=== PATIENT | female | born 1970 | race Caucasian/White ===

== ENCOUNTER 2025-03-29 15:15 | Emergency (ER) | payer OTHER ==
[~2025-03-29] VITALS: Ht 157.5 cm; Wt 84.0 kg
[2025-03-29 15:32] VITALS: TEMP 98.7
--- NOTE | 2025-03-29 15:32 | ED.PDOC ---
HPI (NEURO) HPI Comments 54 y/o F, BIBA, with PMHx of HTN presents to the ED for CC of weakness. Patient states, she has been experiencing symptoms of weakness with associated dizziness and nausea onset, 1000 today (03/29/25). Patient relays, to have checked her BP at home prior to EMS arrival and having a hypertensive reading. Patient denies chest pain, palpitations, abdominal pain, or headache. No other symptoms or modifying factors present at this time. Time Seen by MD: 15:32 Reviewed Notes: Nurses Notes, Metal Milling Machine Operator Notes, Medications, Allergies Information Source: Patient Mode of Arrival: EMS Severity: Moderate Dizziness/Weakness Severity: Does not affect activitie Headache Severity: None Timing: Hours Duration: Since onset Prehospital treatment: None Onset: At rest Circumstances: Spontaneous Symptoms: Vertigo Before: Normal During: Awake After: Normal Mentation History of: None Modifying factors: Nothing Associated Signs and Symptoms: None Past Medical History PAST MEDICAL HISTORY: Denies Surgical History: Cholecystectomy, , Tubal Ligation 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 BORE OPERATOR Hx Family History Family History: Unknown Social History Smoker: Non-Smoker Alcohol: Denies ETOH Use Drugs: Denies Drug Use Lives In: Home Constitutional: reports: weakness; denies: chills, diaphoresis, fatigue, fever, malaise, sweats, others EENTM: denies: blurred vision, double vision, ear bleeding, ear discharge, ear drainage, ear pain, ear ringing, eye pain, eye redness, hearing loss, mouth pain, mouth swelling, nasal discharge, nose bleeding, nose congestion, nose pain, photophobia, tearing, throat pain, throat swelling, voice changes, others Respiratory: denies: cough, hemoptysis, orthopnea, SOB at rest, shortness of breath, SOB with excertion, stridor, wheezing, others Cardiovascular: denies: chest pain, dizzy spells, diaphoresis, Dyspnea on exertion, edema, irregular heart beat, left arm pain, lightheadedness, palpita tions, PND, syncope, others Gastrointestinal: denies: abdomen distended, abdominal pain, blood streaked rehana wels, constipated, diarrhea, dysphagia, difficulty swallowing, hematemesis, melena, nausea, poor appetite, poor fluid intake, rectal bleeding, rectal pain, vomiting, others Genitourinary: denies: abnormal vagina bleeding, burning, dyspareunia, dysuria, flank pain, frequency, hematuria, incontinence, pain, , vagina discharge, urgency, others Neurological: denies: dizziness, fainting, headache, left sided numbness, left sided weakness, numbness, paresthesia, pre-existing deficit, right sided numbness, right sided weakness, seizure, speech problems, tingling, tremors, weakness, others Musculoskeletal: denies: back pain, gout, joint pain, joint swelling, muscle pain, muscle stiffness, neck pain, others Integumetry: denies: bruises, change in color, change in hair/nails, dryness, laceration, lesions, lumps, rash, wounds, others Allergic/Immunocompromised: denies: Difficulty Healing, Frequent Infections, Hives, Itching, others Hematologic/Lymphatic: denies: anemia, blood clots, easy bleeding, easy bruis ing, swollen glands, others Endocrine: denies: excessive hunger, excessive sweating, excessive thirst, exc essive urination, flushing, intolerance to cold, intolerance to heat, unexplained weight gain, unexplained weight loss, others Psychiatric: denies: anxiety, bipolar disorder, depression, hopeless, panic disorder, schizophrenia, sleepless, suicidal, others All Other Systems: Reviewed and Negative Physical Exam General Appearance: Moderate Distress HEENT: Normal ENT Inspection, Pharynx Normal, TMs Normal Neck: Full Range of Motion, Non-Tender, Normal, Normal Inspection Respiratory: Chest Non-Tender, Lungs Clear, No Accessory Muscle Use, No Respiratory Distress, Normal Breath Sounds Cardiovascular: No Edema, No JVD, No Murmur, No Gallop, Normal Peripheral Pulses, Regular Rate/Rhythm Breast Exam: Deferred Gastrointestinal: No Organomegaly, Non Tender, No Pulsatile Mass, Normal Bowel Sounds, Soft Genitalia: Deferred Pelvic: Deferred Rectal: Deferred Extremities: No calf tenderness, Normal capillary refill, Normal inspection, Normal range of motion, Non-tender, No pedal edema Musculoskeletal : Apperance: Normal Neurologic: Alert, manager ed II-XII nml as Tested, No Motor Deficits, Normal Affect, Normal Mood, No Sensory Deficits Cerebellar Function: Normal Reflexes: Normal Skin: Dry, Normal Color, Warm Peripheral Pulses: 3+ Radial (R), 3+ Radial (L) Lymphatic: No Adenopathy Was a procedure done? Was a procedure done?: No Differential Diagnosis (SZ) Seizure: Psychogenic Seizure, Closed Head Injury, CVA/TIA General Weakness: Dehydration, Electrolyte imbalance, Hypoglycemia X-Ray, Labs, Meds, VS Vital Signs Date Time Temp Pulse Resp B/P (MAP) Pulse Ox O2 Delivery O2 Flow Rate FiO2 03/29/25 15:32 98.7 103 16 139/86 (103) 97 98.7 03/29/25 15:21 102 Lab Test 03/29/25 16:41 03/29/25 15:42 Range/Units Urine Color Colorless Yellow Urine Clarity Clear Clear Urine pH 6.5 5.0-9.0 Urine Specific Points 1.005 1.001-1.035 Urine Protein Negative Negative Urine Ketones Negative Negative Urine Blood Negative Negative /uL Urine Nitrite Negative Negative Urine Bilirubin Negative Negative Urine Urobilinogen Normal Negative mg/dL Urine Leukocyte Esterase Negative Negative /uL Urine RBC None seen 0 - 4 /hpf Urine Microscopic WBC < 1 0-5 /HPF Urine Squamous Epithelial Cells None seen <5 /hpf Urine Bacteria None seen None Seen /hpf Urine Glucose Normal Normal mg/dL White Blood Count 5.9 4.4-10.8 10^3/uL Red Blood Count 4.30 4.0-5.20 10^6/uL Hemoglobin 13.9 12.2-16.2 g/dL Hematocrit 40.3 36.0-46.0 % Mean Corpuscular Volume 93.7 80.0-100.0 fL Mean Corpuscular Hemoglobin 32.4 H 28.0-32.0 pg Mean Corpuscular Hemoglobin Concent 34.6 32.0-36.0 g/dL Red Cell Distribution Width 13.4 11.8-14.3 % Platelet Count 253 140-450 10^3/uL Mean Platelet Volume 9.6 6.9-10.8 fL Neutrophils (%) (Auto) 70.3 37.0-80.0 % Lymphocytes (%) (Auto) 21.8 10.0-50.0 % Monocytes (%) (Auto) 6.0 0.0-12.0 % Eosinophils (%) (Auto) 1.2 0.0-7.0 % Basophils (%) (Auto) 0.7 0.0-2.0 % Neutrophils # (Auto) 4.1 1.6-8.6 10 ^3/uL Lymphocytes # (Auto) 1.3 0.4-5.4 10 ^3/uL Monocytes # (Auto) 0.4 0-1.3 10 ^3/uL Eosinophils # (Auto) 0.1 0-0.8 10 ^3/uL Basophils # (Auto) 0 0-0.2 10 ^3/uL Nucleated Red Blood Cells 0.1 % Sodium Level 143 136-145 mmol/L Potassium Level 3.9 3.5-5.1 mmol/L Chloride Level 109 H 98-107 mmol/L Carbon Dioxide Level 23 20-31 mmol/L Anion Gap 11 5-15 Blood Urea Nitrogen 12 9-23 mg/dL Creatinine 0.76 0.550-1.02 mg/dL Glomerular Filtration Rate Calc 92 >90 mL/min BUN/Creatinine Ratio 15.8 10.0-20.0 Serum Glucose 114 H 74-106 mg/dL Calcium Level 9.2 8.7-10.4 mg/dL Patient alert. States that she is feeling much better after coming to the ER. Initially came for dizziness. Vitals stable. Establish intravenous access. Was given fluids. No sign of distress. No sign of any injury. Reviewed her history. She is comfortable. WBC within normal limits. Hemoglobin within normal limits. Urinalysis within normal limits. CT of the head was not done because her neurological examination was pristine. Ambulating without falling. Good muscle strength. No droop. No sign of any neurological deficit. Was given prescription of meclizine. Explained to the patient. Continue monitoring. Was told to follow up with her primary care physician. Was told to come back if there is any problem. Time of 1ST Reevaluation: 16:02 Reevaluation 1ST: Improved Patient Education/Counseling: Diagnosis, Treatment Family Education/Counseling: No Family Present Departure 1 Departure Time of Disposition: 15:53 Impression: Primary Impression: Autonomic disorder Additional Impression: Dehydration Disposition: 01 HOME / SELF CARE / HOMELESS Condition: Good e-Prescriptions Meclizine HCl (Meclizine 25) 25 Mg Tab 25 MG PO DAILY for 5 Days, #5 TAB Prov: TEJAL LINCOLN MD 03/29/25 Discharged With: Self Critical Care Note Critical Care Time?: No Stability Stability form required: No Heart Score Heart Score: Heart Score Response (Comments) Value History N/A 0 EKG N/A 0 Age N/A 0 Risk Factors N/A 0 Troponin N/A 0 Total 0 I personally scribed for TEJAL LINCOLN MD ([email or web address]) on 03/29/25 at 15:32. Electronically submitted by Aissatou Dsouza ([email or web address]). I personally scribed for TEJAL LINCOLN MD ([email or web address]) on 03/29/25 at 15:39. Electronically submitted by Aissatou Dsouza ([email or web address]). I personally scribed for TEJAL LINCOLN MD ([email or web address]) on 03/29/25 at 15:44. Electronically submitted by Aissatou Dsouza ([email or web address]). TEJAL LINCOLN MD Mar 29, 2025 15:32
[2025-03-29] MEDS: SODIUM CHLORIDE 0.9% 1,000 ML IV ONE (15:45)
[2025-03-29 16:06] LABS: Basophils # (auto) 0 10 ^3/uL (0-0.2); Basophils % (auto) 0.7 % (0.0-2.0); Eosinophils # (auto) 0.1 10 ^3/uL (0-0.8); Eosinophils % (auto) 1.2 % (0.0-7.0); Hematocrit 40.3 % (36.0-46.0); Hemoglobin 13.9 g/dL (12.2-16.2); Lymphocytes # (auto) 1.3 10 ^3/uL (0.4-5.4); Lymphocytes % (auto) 21.8 % (10.0-50.0); Mean Corpuscular Hemoglobin 32.4 pg (28.0-32.0); Mean Corpuscular Hgb Conc. 34.6 g/dL (32.0-36.0); Mean Corpuscular Volume 93.7 fL (80.0-100.0); Monocytes # (auto) 0.4 10 ^3/uL (0-1.3); Neutrophils # (auto) 4.1 10 ^3/uL (1.6-8.6); Neutrophils % (auto) 70.3 % (37.0-80.0); Nucleated Red Blood Cells % 0.1 %; Platelet Count (auto) 253 10^3/uL (140-450); Red Cell Distribution Width 13.4 % (11.8-14.3); White Blood Cell 5.9 10^3/uL (4.4-10.8)
[2025-03-29 16:13] LABS: Potassium 3.9 mmol/L (3.5-5.1); Sodium 143 mmol/L (136-145)
[2025-03-29 16:14] LABS: Anion Gap 11 (5-15); Carbon Dioxide 23 mmol/L (20-31)
[2025-03-29 16:15] LABS: Calcium 9.2 mg/dL (8.7-10.4); Chloride 109 mmol/L (98-107)
[2025-03-29 16:20] LABS: BUN/Creatinine Ratio 15.8 (10.0-20.0); Blood Urea Nitrogen 12 mg/dL (9-23); Glucose 114 mg/dL (74-106)
[2025-03-29 16:44] LABS: Urine Bacteria None Seen /hpf (None Seen)
[2025-03-29 16:56] LABS: Urine Blood Negative /uL (Negative); Urine Clarity Clear (Clear); Urine Color Colorless (Yellow); Urine Protein, UAD Negative (Negative); Urine Specific Gravity 1.005 (1.001-1.035); Urine Squamous Epithelial Cell None Seen /hpf (<5); Urine Urobilinogen Normal (Negative); Urine WBC < 1 /HPF (0-5); Urine pH 6.5 (5.0-9.0)
[2025-03-29] MEDS ORDERED: MECL1TAB42 PO (17:33)
[2025-03-29 19:00] VITALS: BP 144/64; PULSE 90; RESP 17; O2SAT 97
--- NOTE | 2025-03-29 19:21 | ECG ---
[facility] Test Date: 2025-03-29 Test Time: 15:21:22 Pat Name: ED MANZANARES Department: ED Room: Gender: F Compliance Program Manager: GP : [id number] Requested By: TEJAL LINCOLN Order Number: [id number] Reading MD: John Garces Measurements Intervals [place] Rate: 102 P: 48 CO: 194 QRS: 13 QRSD: 93 T: 12 QT: 348 QTc: 454 Interpretive Statements Sinus tachycardia Low voltage, precordial leads Electronically Signed On 03-29-2025 22:59:19 PDT by John Garces Please click the below link to view image of tracing.
== END 2025-03-29 19:10 | disposition home or self-care (01) ==
LOC: ER 15:15 → EDBD 15:15 → ER 19:10
DX: G90.9 Disorder of the autonomic nervous system, unspecified (principal); E86.0 Dehydration; Z90.49 Acquired absence of other specified parts of digestive tract; Z98.51 Tubal ligation status
CPT/HCPCS: 36415; 80048; 81001; 82947; 85025; 93005; 96360; 96361; 99284; J7030